=== PATIENT | female | born 1990 | race Caucasian/White ===

== ENCOUNTER 2016-08-27 21:06 | Emergency (ER) | payer SELFPAY ==
[~2016-08-27] VITALS: Ht 154.9 cm; Wt 58.1 kg
[2016-08-27 21:08] VITALS: BP 132/83
--- NOTE | 2016-08-27 22:37 | NUR ---
PATIENT LEFT WITHOUT BEING SEEN BY DR. ADAMS. NO FURTHER CARE PROVIDED FOR PATIENT.
== END 2016-08-27 22:37 | disposition left against medical advice (07) ==
LOC: MED 21:06
DX: R07.89 Other chest pain (principal); Z53.21 Procedure and treatment not carried out due to patient leaving prior to being seen by health care provider